=== PATIENT | female | born 1995 | race African-American/Black ===

== ENCOUNTER 2017-07-29 16:23 | Emergency (ER) | payer SELFPAY ==
[~2017-07-29] VITALS: Ht 175.3 cm; Wt 155.0 kg
[2017-07-29 16:28] VITALS: BP 182/100; PULSE 66; RESP 18; TEMP 98.9; O2SAT 98
--- NOTE | 2017-07-29 16:33 | PD ---
Physical Exam Date Seen by Provider: Jul 29, 2017 Time Seen by Provider: 16:31 Narrative 21 yo female here for abdominal pain and vomit. has vomited blood x 2. Last time two days ago. has had some chest pain as well but not now. Pain is 6/10. mainly in upper abdomen. no history of blood thinner use or this in the past. Vitals are stable in triage. Awaiting bed placement. Data Data Last Documented VS Vital Signs Date Time Temp Pulse Resp B/P (MAP) Pulse Ox O2 Delivery O2 Flow Rate FiO2 07/29/17 16:28 98.9 66 18 182/100 (127) 98 Room Air [facility] Medical Record Reviewed: Yes Supervised Visit with TARIQ: No Jae Sorensen Jul 29, 2017 16:32
[2017-07-29 19:35] VITALS: BP 130/65; PULSE 67; RESP 18; O2SAT 100
--- NOTE | 2017-07-29 19:39 | PD ---
HPI Chief Complaint: Abdominal Pain Time Seen by Provider: 19:25 Travel History International Travel<30 days: No Contact w/Intl Traveler<30days: No Traveled to known affect area: No History of Present Illness HPI This is a 21-year-old female with no significant past medical history presents for evaluation of abdominal pain. Symptoms started 1 week ago. She endorses intermittent epigastric/right upper quadrant pain which she describes a sharp, worse after meals. She is currently not experiencing any pain, she last x-rays pain earlier today when she ate a blueberry muffin. She reports that she was seen at 2 outside emergency rooms for evaluation of this pain in the past week and reportedly no testing was performed. She reports 2 episodes of vomiting last week when she actually gagged herself with a toothbrush but otherwise during review of systems she denies any additional nausea or vomiting. She denies any diarrhea or constipation, dysuria, flank pain. She does endorse some soreness in her breast region from exercise activities that she started doing in May. She reports that she started her menstrual period today. She denies any unusual vaginal discharge. She has no other complaints at this time. [facility] Past Medical History ?: Not LMP: 07/29/17 Social History Alcohol Use: No Tobacco Use: No Allergies-Medications (Allergen,Severity, Reaction): Coded Allergies: No Known Allergies (Unverified , 07/29/17) Review of Systems Except as stated in HPI: all other systems reviewed are Neg Physical Exam Narrative GENERAL: Well-developed well-nourished female in no acute distress, BMI 50.5 SKIN: Warm and dry. HEAD: Atraumatic. Normocephalic. EYES: Pupils equal and round. No scleral icterus. No injection or drainage. ENT: No nasal bleeding or discharge. Mucous membranes pink and moist. NECK: Trachea midline. No JVD. CARDIOVASCULAR: Regular rate and rhythm. No murmur appreciated. RESPIRATORY: No accessory muscle use. Clear to auscultation. Breath sounds equal bilaterally. GASTROINTESTINAL: Abdomen soft, very mild right upper quadrant tenderness without guarding. The remainder of the abdomen is nontender. MUSCULOSKELETAL: No obvious deformities. No clubbing. No cyanosis. No edema. NEUROLOGICAL: Awake and alert. No obvious cranial nerve deficits. Motor grossly within normal limits. Normal speech. PSYCHIATRIC: Appropriate mood and affect; insight and judgment normal. Data Data Last Documented VS Vital Signs Date Time Temp Pulse Resp B/P (MAP) Pulse Ox O2 Delivery O2 Flow Rate FiO2 07/29/17 19:35 67 18 130/65 (86) 100 Room Air 07/29/17 16:28 98.9 Orders Orders Complete Blood Count With Diff (07/29/17 16:35) Comprehensive Metabolic Panel (07/29/17 16:35) Lipase (07/29/17 16:35) Prothrombin Time / Inr (Pt) (07/29/17 16:35) Act Partial Throm Time (Ptt) (07/29/17 16:35) Urinalysis - C+S If Indicated (07/29/17 16:35) Electrocardiogram (07/29/17 16:35) Ed Urine Pregnancytest Poc (07/29/17 19:10) Us Abdomen Gallbladder (07/29/17 ) Ed Discharge Order (07/29/17 20:47) Labs Laboratory Tests Test 07/29/17 19:43 White Blood Count 6.0 TH/MM3 Red Blood Count 4.58 MIL/MM3 Hemoglobin 11.2 GM/DL Hematocrit 35.3 % Mean Corpuscular Volume 77.1 FL Mean Corpuscular Hemoglobin 24.4 PG Mean Corpuscular Hemoglobin Concent 31.6 % Red Cell Distribution Width 17.1 % Platelet Count 229 TH/MM3 Mean Platelet Volume 9.7 FL Neutrophils (%) (Auto) 48.8 % Lymphocytes (%) (Auto) 40.4 % Monocytes (%) (Auto) 9.8 % Eosinophils (%) (Auto) 0.6 % Basophils (%) (Auto) 0.4 % Neutrophils # (Auto) 2.9 TH/MM3 Lymphocytes # (Auto) 2.4 TH/MM3 Monocytes # (Auto) 0.6 TH/MM3 Eosinophils # (Auto) 0.0 TH/MM3 Basophils # (Auto) 0.0 TH/MM3 CBC Comment DIFF FINAL Differential Comment Prothrombin Time 11.9 SEC Prothromb Time International Ratio 1.1 RATIO Activated Partial Thromboplast Time 27.8 SEC Urine Color YELLOW Urine Turbidity HAZY Urine pH 6.0 Urine Specific [place] 1.034 Urine Protein TRACE mg/dL Urine Glucose (UA) NEG mg/dL Urine Ketones 80 mg/dL Urine Occult Blood MOD Urine Nitrite NEG Urine Bilirubin NEG Urine Urobilinogen 2.0 MG/DL Urine Leukocyte Esterase NEG Urine RBC 1 /hpf Urine WBC 3 /hpf Urine Squamous Epithelial Cells 6 /hpf Urine Mucus FEW /lpf Microscopic Urinalysis Comment CULT NOT INDICATED Blood Urea Nitrogen 9 MG/DL Creatinine 0.71 MG/DL Random Glucose 78 MG/DL Total Protein 7.9 GM/DL Albumin 3.7 GM/DL Calcium Level 9.5 MG/DL Alkaline Phosphatase 56 U/L Aspartate Amino Transf (AST/SGOT) 13 U/L Alanine Aminotransferase (ALT/SGPT) 15 U/L Total Bilirubin 0.2 MG/DL Sodium Level 138 MEQ/L Potassium Level 3.6 MEQ/L Chloride Level 105 MEQ/L Carbon Dioxide Level 24.2 MEQ/L Anion Gap 9 MEQ/L Estimat Glomerular Filtration Rate 126 ML/MIN Lipase 112 U/L MDM Medical Decision Making Medical Screen Exam Complete: Yes Emergency Medical Condition: Yes Medical Record Reviewed: Yes Interpretation(s) CBC reveals a hemoglobin of 11.2 otherwise unremarkable CMP Lipase Urinalysis 80 ketones moderate blood Urine negative Differential Diagnosis Biliary colic, cholecystitis, pancreatitis, gastritis, muscle strain Narrative Course This is a 21-year-old female who is been expressing intermittent epigastric and right upper quadrant abdominal pain that is exacerbated by meals. This started 1 week ago. Currently she is experiencing no pain. On examination she has mild right upper quadrant tenderness and therefore right upper quadrant ultrasound is been ordered. Basic lab work was ordered in triage. EKG was ordered in triage which reveals sinus rhythm with sinus arrhythmia. Her initial blood pressure in triage was 182/100, upon recheck in room the blood pressure is 130/65. Right upper quadrant ultrasound reveals CONCLUSION: 1. Gallstone in the gallbladder. 2. No biliary tract obstruction. The patient has been asymptomatic during her hospital stay. Certainly her symptoms could be suggestive of a biliary colic. The patient be given a copy of her ultrasound report and it is recommended that she follow up with a general surgeon on a routine basis to discuss elective cholecystectomy. Discussed signs and symptoms of [place] returning to the emergency room. She is stable for discharge. Diagnosis Primary Impression: Cholelithiasis Qualified Codes: K80.20 - Calculus of gallbladder without cholecystitis without obstruction Referrals: Puma Truong MD General Surgeon Additional Instructions: Please print copy of the patient's ultrasound results and provide the patient with it. Low-fat diet. Follow-up with a general surgeon such as Dr. Truong on a routine basis. If you have severe intractable right upper quadrant abdominal pain, intractable vomiting, fevers, return to the emergency room. Med/Other Pt SpecificInfo: No Change to Meds Disposition: 01 DISCHARGE HOME Condition: Stable Vinh Rose Jul 29, 2017 19:39
[2017-07-29 20:06] LABS: AUTOMATED NEUTROPHIL # 2.9 TH/MM3 (1.8-7.7); BASOPHIL % 0.4 % (0.0-2.0); EOSINOPHIL % 0.6 % (0.0-4.0); HEMATOCRIT 35.3 % (35.0-46.0); HEMO FLAGS DIFF FINAL; LYMPH % 40.4 % (9.0-44.0); LYMPHOCYTE # 2.4 TH/MM3 (1.0-4.8); MEAN CELL VOLUME 77.1 FL (80.0-100.0); MEAN CORPUSCULAR HEMOGLOBIN 24.4 PG (27.0-34.0); MEAN CORPUSCULAR HGB CONC 31.6 % (32.0-36.0); MONO % 9.8 % (0.0-8.0); NEUT % 48.8 % (16.0-70.0); PLATELET COUNT 229 TH/MM3 (150-450); RED BLOOD COUNT 4.58 MIL/MM3 (4.00-5.30); RED CELL DISTRIBUTION WIDTH 17.1 % (11.6-17.2)
[2017-07-29 20:10] LABS: BLOOD, URINE MOD (NEG); COMMENT (UR) CULT NOT INDICATED; CULTURE IF INDICATED CULT NOT INDICATED; GLUCOSE,URINE NEG (NEG); KETONE, URINE 80 mg/dL (NEG); MUCUS URINE FEW /lpf (OCC); NITRITE,URINE NEG (NEG); SQUAMOUS EPITHELIAL CELL URINE 6 /hpf (0-5); URINE COLOR YELLOW (YELLW/STRAW)
[2017-07-29 20:23] LABS: ALT (GPT) 15 U/L (10-53); ANION GAP 9 MEQ/L (5-15); AST (GOT) 13 U/L (15-37); BICARBONATE 24.2 MEQ/L (21.0-32.0); BLOOD UREA NITROGEN 9 MG/DL (7-18); CHLORIDE 105 MEQ/L (98-107); GLOMERULAR FILTRATION RATE 126 ML/MIN (>89); POTASSIUM 3.6 MEQ/L (3.5-5.1); SODIUM (NA) 138 MEQ/L (136-145)
[2017-07-29 20:26] LABS: ALKALINE PHOSPHATASE 56 U/L (45-117); APTT (PATIENT) 27.8 SEC (24.3-30.1); INTERNATIONAL NORMALIZED RATIO 1.1 RATIO; PROTHROMBIN TIME - PATIENT 11.9 SEC (9.8-11.6); TOTAL BILIRUBIN ADULT 0.2 MG/DL (0.2-1.0)
--- NOTE | 2017-07-29 20:33 | RADRPT ---
EXAM DATE/TIME: 07/29/2017 20:08 [facility] COMPARISON: No previous studies available for comparison. INDICATIONS : Right upper quadrant. MEDICAL HISTORY : Right upper quadrant pain. SURGICAL HISTORY : None. ENCOUNTER: Initial ACUITY: 1 week PAIN SCORE: 6/10 LOCATION: Right upper quadrant MEASUREMENTS: LIVER: 14.4 cm length COMMON DUCT: 5 mm RIGHT KIDNEY: 9.7 x 4.8 x 5.8 cm FINDINGS: LIVER: Normal echotexture without focal lesion or ductal dilatation. The portal system is patent. No ascites . COMMON DUCT: No intraluminal mass or stone visualized. GALLBLADDER: There appears to be a stone in the gallbladder measuring 1.1 cm. The gallbladder bear not thickened. There is no fluid around the gallbladder. PANCREAS: The visualized portions are within normal limits. RIGHT KIDNEY: Limited visualization but no definite hydronephrosis. CONCLUSION: 1. Gallstone in the gallbladder. 2. No biliary tract obstruction. Marito Arias MD on July 29, 2017 at 20:30 Board Certified Radiologist. This report was verified electronically.
--- NOTE | 2017-07-30 23:49 | EKG ---
Date Performed: 07/29/2017 Time Performed: 16:44:04 PTAGE: 21 years EKG: Sinus rhythm WITH MARKED SINUS ARRHYTHMIA MINIMAL VOLTAGE CRITERIA FOR LVH, CONSIDER NORMAL VARIANT BORDERLINE EC G NO PREVIOUS TRACING DOCTOR: August Dow Interpretating Date/Time 07/30/2017 23:49:24
== END 2017-07-29 21:02 | disposition home or self-care (01) ==
LOC: NEPE 16:23
DX: K80.20 Calculus of gallbladder without cholecystitis without obstruction (principal); R94.31 Abnormal electrocardiogram [ECG] [EKG]
CPT/HCPCS: 76705; 80053; 81001; 83690; 84703; 85025; 85610; 85730; 93005; 99285

== ENCOUNTER 2017-08-13 14:04 | Emergency (ER) | payer SELFPAY ==
[~2017-08-13] VITALS: Ht 175.3 cm; Wt 158.0 kg
[2017-08-13 14:05] VITALS: BP 142/90; PULSE 72; RESP 16; TEMP 98.3; O2SAT 100
--- NOTE | 2017-08-13 14:34 | PD ---
HPI . Abdominal pain Chief Complaint: Abdominal Pain Time Seen by Provider: 14:23 Travel History International Travel<30 days: No Contact w/Intl Traveler<30days: No Traveled to known affect area: No History of Present Illness HPI Patient presents stating that she had an episode of left upper abdominal pain earlier today. She describes the pain as a sharp pain that was exacerbated by respirations. She rated the pain 3/10 but the pain has now completely subsided so that it is now a 0/10. She reports an associated episode of emesis. She is curious as to how long this visit is going to take because she is ready to go to lunch. [facility] Social History Alcohol Use: No Tobacco Use: No Allergies-Medications (Allergen,Severity, Reaction): Coded Allergies: No Known Allergies (Unverified , 07/29/17) Review of Systems Except as stated in HPI: all other systems reviewed are Neg Gastrointestinal: Positive: Nausea, Vomiting, Abdominal Pain, No: Diarrhea Genitourinary: No: Urgency, Frequency, Dysuria Physical Exam Narrative GENERAL: She is lying comfortably on the stretcher. SKIN: warm/dry. HEAD: Normocephalic. Atraumatic. EYES: Pupils equal and round. No scleral icterus. No injection or drainage. ENT: No nasal bleeding or discharge. Mucous membranes pink and moist. NECK: Trachea midline. Full range of motion without pain.. CARDIOVASCULAR: Regular rate and rhythm. RESPIRATORY: No accessory muscle use. Clear to auscultation. Breath sounds equal bilaterally. GASTROINTESTINAL: Abdomen soft. Nontender. Bowel sounds present. Nondistended. MUSCULOSKELETAL: No obvious deformities. NEUROLOGICAL: Awake and alert. No obvious cranial nerve deficits. Motor grossly within normal limits. Normal speech. PSYCHIATRIC: Appropriate mood and affect; insight and judgment normal. Data Data Last Documented VS Vital Signs Date Time Temp Pulse Resp B/P (MAP) Pulse Ox O2 Delivery O2 Flow Rate FiO2 08/13/17 14:05 98.3 72 16 142/90 (107) 100 Room Air Orders Orders Ed Discharge Order (08/13/17 14:31) [facility] Medical Decision Making Medical Screen Exam Complete: Yes Emergency Medical Condition: Yes Differential Diagnosis Differential diagnosis of abdominal pain includes but is not limited to gastritis, pancreatitis, hepatitis, gastroenteritis, gallbladder disease, constipation, urinary retention, UTI, peptic ulcer disease, diverticulitis or appendicitis Narrative Course This patient presents with left upper quadrant abdominal pain associated with single episode of emesis. Her symptoms have all completely subsided. He is hungry and ready to eat. The history, exam, diagnostic testing, and current condition do not suggest any significant pathology to warrant further testing, continued ED treatment, admission, or surgical evaluation at this point. No EMC was found. The patient 's condition is stable and appropriate for discharge. Diagnosis Primary Impression: Abdominal pain Qualified Codes: R10.12 - Left upper quadrant pain Patient Instructions: General Instructions Departure Forms: Tests/Procedures Disposition: DISCHARGE HOME Condition: Stable Hyacinth Martin MD Aug 13, 2017 14:34
== END 2017-08-13 14:41 | disposition home or self-care (01) ==
LOC: NEPD 14:04
DX: R10.12 Left upper quadrant pain (principal); R11.2 Nausea with vomiting, unspecified
CPT/HCPCS: 99281

== ENCOUNTER 2017-11-05 13:16 | Emergency (ER) | payer SELFPAY ==
[~2017-11-05] VITALS: Ht 175.3 cm; Wt 152.3 kg
[2017-11-05 13:18] VITALS: BP 131/79; PULSE 118; RESP 14; TEMP 98.2; O2SAT 98
[2017-11-05 14:01] LABS: BILIRUBIN, URINE NEG (NEG); BLOOD, URINE TRACE (NEG); GLUCOSE,URINE NEG (NEG); KETONE, URINE NEG (NEG); MUCUS URINE FEW /lpf (OCC); NITRITE,URINE NEG (NEG); PH, URINE 5.5 (5.0-8.5); SQUAMOUS EPITHELIAL CELL URINE 1 /hpf (0-5); URINE COLOR YELLOW (YELLW/STRAW); URINE LEUKOCYTE ESTERASE NEG (NEG)
--- NOTE | 2017-11-05 14:51 | PD ---
HPI Chief Complaint: Back/ Neck Pain or Injury Time Seen by Provider: 14:49 Travel History International Travel<30 days: No Contact w/Intl Traveler<30days: No Traveled to known affect area: No History of Present Illness HPI 22-year-old female presents the emergency department with complaints of urinary frequency and generalized weakness. Patient states that she gets recurrent sinusitis. She is currently on cephalexin, and saline nasal spray for that. She states she get the prescription back in July but never took it until several days ago. When low-grade low back discomfort, as well as fatigue which has been worse in the last 24-48 hours. Patient does report fairly heavy periods, but she's never been diagnosed with anemia. She denies fever or chills or other constitutional symptoms. She has no known drug allergies. Urinalysis and urine ordered and triage are both negative. PFSH Past Medical History ?: Not LMP: 10/15/2017 Social History Alcohol Use: No Tobacco Use: No Substance Use: No Allergies-Medications (Allergen,Severity, Reaction): Coded Allergies: No Known Allergies (Unverified Adverse Reaction, Unknown, 11/05/17) Reported Meds & Prescriptions Reported Meds & Active Scripts Active No Active Prescriptions or Reported Medications Review of Systems Except as stated in HPI: all other systems reviewed are Neg General / Constitutional: No: Fever, Chills Eyes: No: Visual changes HENT: Positive: Rhinitis, Rhinorrhea, Congestion, No: Headaches, Vertigo, Lightheadedness, Sore Throat, Nosebleed, Neck Stiffness, Neck Pain, Dental Difficulties, Earache Cardiovascular: No: Chest Pain or Discomfort Respiratory: No: Cough, Shortness of Breath, Wheezing Gastrointestinal: No: Nausea, Vomiting, Abdominal Pain Genitourinary: Positive: Frequency, No: Urgency, Dysuria Musculoskeletal: No: Pain Skin: No Rash Neurologic: No: Weakness Psychiatric: No: Depression Endocrine: No: Polydipsia Hematologic/Lymphatic: No: Easy Bruising Physical Exam Narrative GENERAL: Patient appears in no acute distress. SKIN: Warm and dry.. Normal turgor. HEAD: Atraumatic. Normocephalic. EYES: Pupils equal and round. No scleral icterus. No injection or drainage. Moderate bilateral conjunctival pallor suggestive of anemia. ENT: No nasal bleeding or discharge. Mucous membranes pink and moist. No significant sinus tenderness at this time. Posterior pharynx is clear. Airway is patent. NECK: Trachea midline. Supple and nontender. CARDIOVASCULAR: Regular rate and rhythm. RESPIRATORY: No accessory muscle use. Clear to auscultation. Breath sounds equal bilaterally. GASTROINTESTINAL: Abdomen soft, non-tender, nondistended. Hepatic and splenic margins not palpable. MUSCULOSKELETAL: Extremities without clubbing, cyanosis, or edema. No obvious deformities. No significant findings on musculoskeletal exam. NEUROLOGICAL: Awake and alert. No obvious cranial nerve deficits. Motor grossly within normal limits. Five out of 5 muscle strength in the arms and legs. Normal speech. PSYCHIATRIC: Appropriate mood and affect; insight and judgment normal. Data Data Last Documented VS Vital Signs Date Time Temp Pulse Resp B/P (MAP) Pulse Ox O2 Delivery O2 Flow Rate FiO2 11/05/17 13:18 98.2 118 14 131/79 (96) 98 Orders Orders Urinalysis - C+S If Indicated (11/05/17 13:21) Ed Urine Pregnancytest Poc (11/05/17 13:28) Complete Blood Count With Diff (11/05/17 14:58) Comprehensive Metabolic Panel (11/05/17 14:58) Labs Laboratory Tests Test 11/05/17 13:30 11/05/17 15:15 Urine Color YELLOW Urine Turbidity CLEAR Urine pH 5.5 Urine Specific [place] 1.016 Urine Protein TRACE mg/dL Urine Glucose (UA) NEG mg/dL Urine Ketones NEG mg/dL Urine Occult Blood TRACE Urine Nitrite NEG Urine Bilirubin NEG Urine Urobilinogen LESS THAN 2.0 MG/DL Urine Leukocyte Esterase NEG Urine RBC 6 /hpf Urine WBC 1 /hpf Urine Squamous Epithelial Cells 1 /hpf Urine Mucus FEW /lpf Microscopic Urinalysis Comment CULT NOT INDICATED White Blood Count 7.6 TH/MM3 Red Blood Count 4.69 MIL/MM3 Hemoglobin 11.7 GM/DL Hematocrit 35.8 % Mean Corpuscular Volume 76.4 FL Mean Corpuscular Hemoglobin 25.0 PG Mean Corpuscular Hemoglobin Concent 32.7 % Red Cell Distribution Width 17.5 % Platelet Count 247 TH/MM3 Mean Platelet Volume 9.9 FL Neutrophils (%) (Auto) 62.1 % Lymphocytes (%) (Auto) 25.4 % Monocytes (%) (Auto) 11.5 % Eosinophils (%) (Auto) 0.6 % Basophils (%) (Auto) 0.4 % Neutrophils # (Auto) 4.7 TH/MM3 Lymphocytes # (Auto) 1.9 TH/MM3 Monocytes # (Auto) 0.9 TH/MM3 Eosinophils # (Auto) 0.0 TH/MM3 Basophils # (Auto) 0.0 TH/MM3 CBC Comment DIFF FINAL Differential Comment Blood Urea Nitrogen 10 MG/DL Creatinine 0.82 MG/DL Random Glucose 73 MG/DL Total Protein 8.7 GM/DL Albumin 3.8 GM/DL Calcium Level 9.1 MG/DL Alkaline Phosphatase 64 U/L Aspartate Amino Transf (AST/SGOT) 22 U/L Alanine Aminotransferase (ALT/SGPT) 18 U/L Total Bilirubin 0.3 MG/DL Sodium Level 138 MEQ/L Potassium Level 4.4 MEQ/L Chloride Level 105 MEQ/L Carbon Dioxide Level 24.7 MEQ/L Anion Gap 8 MEQ/L Estimat Glomerular Filtration Rate 105 ML/MIN MDM Medical Decision Making Medical Screen Exam Complete: Yes Emergency Medical Condition: Yes Medical Record Reviewed: Yes Differential Diagnosis UTI. . Fatigue. Anemia. Narrative Course Urinalysis and urine in triage are both negative. CBC and CMP are ordered to rule out significant anemia. CBC is unremarkable. CMP unremarkable. Patient follow-up with local primary care provider, and was referred to [facility]. Diagnosis Primary Impression: Fatigue Qualified Codes: R53.83 - Other fatigue Referrals: [facility] call for appointment Patient Instructions: General Instructions Additional Instructions: Urinalysis and urine in triage are both negative. CBC and CMP are ordered to rule out significant anemia. CBC is unremarkable. CMP unremarkable. Patient follow-up with local primary care provider, and was referred to [facility]. Med/Other Pt SpecificInfo: No Change to Meds Scripts No Active Prescriptions or Reported Meds Disposition: 01 DISCHARGE HOME Condition: Stable Puma Burroughs Nov 05, 2017 14:51
[2017-11-05 16:24] LABS: AUTOMATED NEUTROPHIL # 4.7 TH/MM3 (1.8-7.7); BASOPHIL % 0.4 % (0.0-2.0); EOSINOPHIL % 0.6 % (0.0-4.0); HEMATOCRIT 35.8 % (35.0-46.0); HEMOGLOBIN 11.7 GM/DL (11.6-15.3); LYMPH % 25.4 % (9.0-44.0); LYMPHOCYTE # 1.9 TH/MM3 (1.0-4.8); MEAN CELL VOLUME 76.4 FL (80.0-100.0); MEAN CORPUSCULAR HGB CONC 32.7 % (32.0-36.0); MEAN PLATELET VOLUME 9.9 FL (7.0-11.0); MONO % 11.5 % (0.0-8.0); MONOCYTE # 0.9 TH/MM3 (0-0.9); NEUT % 62.1 % (16.0-70.0); PLATELET COUNT 247 TH/MM3 (150-450); RED BLOOD COUNT 4.69 MIL/MM3 (4.00-5.30); RED CELL DISTRIBUTION WIDTH 17.5 % (11.6-17.2); WHITE BLOOD COUNT 7.6 TH/MM3 (4.0-11.0)
[2017-11-05 16:40] LABS: ALT (GPT) 18 U/L (10-53)
[2017-11-05 16:41] LABS: ALBUMIN 3.8 GM/DL (3.4-5.0); AST (GOT) 22 U/L (15-37); BICARBONATE 24.7 MEQ/L (21.0-32.0); BLOOD UREA NITROGEN 10 MG/DL (7-18); CALCIUM 9.1 MG/DL (8.5-10.1); CHLORIDE 105 MEQ/L (98-107); CREATININE 0.82 MG/DL (0.50-1.00); GLOMERULAR FILTRATION RATE 105 ML/MIN (>89); GLUCOSE,RANDOM 73 MG/DL (74-106); SODIUM (NA) 138 MEQ/L (136-145)
[2017-11-05 16:42] LABS: ALKALINE PHOSPHATASE 64 U/L (45-117); TOTAL BILIRUBIN ADULT 0.3 MG/DL (0.2-1.0); TOTAL PROTEIN 8.7 GM/DL (6.4-8.2)
[2017-11-05 16:50] VITALS: BP 129/73; PULSE 94; RESP 16; O2SAT 98
== END 2017-11-05 17:14 | disposition home or self-care (01) ==
LOC: NEPD 13:16
DX: R53.83 Other fatigue (principal); J34.89 Other specified disorders of nose and nasal sinuses; R09.81 Nasal congestion
CPT/HCPCS: 80053; 81001; 84703; 85025; 99283

== ENCOUNTER 2017-12-04 18:02 | Emergency (ER) | payer MEDICAID ==
[~2017-12-04] VITALS: Ht 175.3 cm; Wt 155.0 kg
[2017-12-04 18:05] VITALS: BP 150/105; PULSE 89; RESP 16; TEMP 98.2; O2SAT 99
[2017-12-04 19:48] LABS: BACTERIA, URINE RARE /hpf; BILIRUBIN, URINE NEG (NEG); BLOOD, URINE LARGE (NEG); GLUCOSE,URINE NEG (NEG); KETONE, URINE NEG (NEG); MUCUS URINE FEW /lpf (OCC); NITRITE,URINE NEG (NEG); PH, URINE 5.5 (5.0-8.5); SQUAMOUS EPITHELIAL CELL URINE 5 /hpf (0-5); URINE COLOR YELLOW (YELLW/STRAW); URINE LEUKOCYTE ESTERASE SMALL (NEG)
[2017-12-04 20:20] VITALS: BP 140/70; PULSE 68; RESP 15; O2SAT 100
--- NOTE | 2017-12-04 20:31 | PD ---
HPI Chief Complaint: Flank/Kidney Pain Time Seen by Provider: 20:07 Travel History International Travel<30 days: No Contact w/Intl Traveler<30days: No Traveled to known affect area: No History of Present Illness HPI pt is 22 year old female complaining of right parathoracic area back pain and right UQ pain off and on for weeks , patient reports she was in the hospital in August in our ER had an ultrasound she said it showed gallstones which she never followed up with surgery. She denies nausea vomiting diarrhea she has had no surgeries she denies risk pain is parathoracic right sided as well as right upper quadrant. She is currently having her period for the red blood cells and responded her urine are not an indication of any kidney involvement PFSH Past Medical History Medical History: Denies Significant Hx ?: Not LMP: 12/04/17 Past Surgical History Surgical History: No Previous Surgery Social History Alcohol Use: No Tobacco Use: No Substance Use: No Allergies-Medications (Allergen,Severity, Reaction): Coded Allergies: No Known Allergies (Unverified Adverse Reaction, Unknown, 12/04/17) Reported Meds & Prescriptions Reported Meds & Active Scripts Active Bactrim DS (Sulfamethoxazole-Trimethoprim) 800-160 Mg Tab 1 Tab PO BID Review of Systems Except as stated in HPI: all other systems reviewed are Neg Gastrointestinal: Positive: Abdominal Pain (right sided mid back pain intermittent dull deep pain localized internal . ) Physical Exam Narrative GENERAL: Patient is nontoxic appearing awake alert SKIN: Warm and dry. HEAD: Atraumatic. Normocephalic. EYES: Pupils equal and round. No scleral icterus. No injection or drainage. ENT: No nasal bleeding or discharge. Mucous membranes pink and moist. NECK: Trachea midline. No JVD. CARDIOVASCULAR: Regular rate and rhythm. RESPIRATORY: No accessory muscle use. Clear to auscultation. Breath sounds equal bilaterally. GASTROINTESTINAL: Abdomen mild tenderness right upper quadrant , patient is obese. Hepatic and splenic margins not palpable. MUSCULOSKELETAL: Extremities without clubbing, cyanosis, or edema. No obvious deformities. NEUROLOGICAL: Awake and alert. No obvious cranial nerve deficits. Motor grossly within normal limits. Five out of 5 muscle strength in the arms and legs. Normal speech. PSYCHIATRIC: Appropriate mood and affect; insight and judgment normal. Data Data Last Documented VS Vital Signs Date Time Temp Pulse Resp B/P (MAP) Pulse Ox O2 Delivery O2 Flow Rate FiO2 2/15/18 23:12 12/04/17 20:20 68 15 100 Room Air 12/04/17 18:05 98.2 Orders Orders Urinalysis - C+S If Indicated (12/04/17 18:50) Ed Urine Pregnancytest Poc (12/04/17 18:50) Urine Culture (12/04/17 18:50) Us Abdomen Gallbladder (12/04/17 ) Sulfamet-Trimeth Ds 800-160 Mg (Bactrim (12/04/17 23:15) Ed Discharge Order (12/04/17 23:07) Labs Laboratory Tests Test 12/04/17 18:50 Urine Color YELLOW Urine Turbidity HAZY Urine pH 5.5 Urine Specific [place] 1.022 Urine Protein 30 mg/dL Urine Glucose (UA) NEG mg/dL Urine Ketones NEG mg/dL Urine Occult Blood LARGE Urine Nitrite NEG Urine Bilirubin NEG Urine Urobilinogen LESS THAN 2.0 MG/DL Urine Leukocyte Esterase SMALL Urine RBC 96 /hpf Urine WBC 9 /hpf Urine Squamous Epithelial Cells 5 /hpf Urine Bacteria RARE /hpf Urine Mucus FEW /lpf Microscopic Urinalysis Comment CULTURE INDICATED MDM Medical Decision Making Medical Screen Exam Complete: Yes Emergency Medical Condition: Yes Differential Diagnosis pt has RUQ pain GB vs gastritis vs pancreatitis, vs other Narrative Course pt has normal labs and US looks to have possibly 1 Gallstone without signs of Cholecystitis. Diagnosis Primary Impression: Abdominal pain Qualified Codes: R10.11 - Right upper quadrant pain Patient Instructions: General Instructions, Urinary Tract Infection in Women ( ED) Scripts Sulfamethoxazole-Trimethoprim (Bactrim DS) 800-160 Mg Tab 1 TAB PO BID for Infection, #14 TAB 0 Refills Prov: Hebert Palencia MD 12/04/17 Disposition: 01 DISCHARGE HOME Condition: Hebert Ingram MD Dec 04, 2017 20:31
--- NOTE | 2017-12-04 21:22 | RADRPT ---
EXAM DATE/TIME: 12/04/2017 20:42 [facility] COMPARISON: No previous studies available for comparison. INDICATIONS : Right upper quadrant pain. MEDICAL HISTORY : Cholelithiasis. SURGICAL HISTORY : None. ENCOUNTER: Subsequent ACUITY: 1 week PAIN SCORE: 2/10 LOCATION: Right upper quadrant MEASUREMENTS: LIVER: 14.3 cm length COMMON DUCT: 5 mm RIGHT KIDNEY: 11.3 x 7.1 x 6.6 cm FINDINGS: LIVER: Normal echotexture without focal lesion or ductal dilatation. COMMON DUCT: No intraluminal mass or stone visualized. GALLBLADDER: Contains no stones, demonstrates no wall thickening or pericholecystic fluid. PANCREAS: The visualized portions are within normal limits. RIGHT KIDNEY: No evidence of hydronephrosis, stone, or mass. CONCLUSION: 1. Examination within normal limits. Dante Canseco MD on December 04, 2017 at 21:17 Board Certified Radiologist. This report was verified electronically.
[2017-12-04] MEDS ORDERED: BACT800T5 PO (23:07)
[2017-12-04] MEDS ORDERED: SULFAMETHOXAZOLE-TRIMETHOPRIM DS 800-160 MG TAB PO ONE (23:15)
== END 2017-12-04 23:29 | disposition home or self-care (01) ==
LOC: NEPC 18:02
DX: R10.11 Right upper quadrant pain (principal)
CPT/HCPCS: 76705; 81001; 84703; 87086

== ENCOUNTER 2017-12-15 12:18 | Emergency (ER) | payer MEDICAID ==
[~2017-12-15 12:18] MED LIST: BACT800T5 PO
[2017-12-15 12:49] VITALS: BP 122/66; PULSE 60; RESP 12; TEMP 98.5; O2SAT 100
[2017-12-15 14:15] LABS: BILIRUBIN, URINE NEG (NEG); BLOOD, URINE NEG (NEG); GLUCOSE,URINE NEG (NEG); KETONE, URINE NEG (NEG); MUCUS URINE FEW /lpf (OCC); NITRITE,URINE NEG (NEG); PH, URINE 5.5 (5.0-8.5); SQUAMOUS EPITHELIAL CELL URINE 9 /hpf (0-5); URINE COLOR YELLOW (YELLW/STRAW); URINE LEUKOCYTE ESTERASE NEG (NEG)
--- NOTE | 2017-12-15 14:15 | PD ---
HPI Chief Complaint: Medical Clearance Time Seen by Provider: 13:42 Travel History International Travel<30 days: No Contact w/Intl Traveler<30days: No Traveled to known affect area: No History of Present Illness HPI 22 YO F presents to the ED for evaluation of "worms" in her stool and nasal secretions. She states that she traveled to [place] with her choral group few weeks ago. She states that after eating salad from the salad bar at school she had a loose stool and thought she was able to see something that was wormlike. She states that she blew her nose this morning and again thought she saw wormlike structures in her nasal secretions. She complains of vague, generalized abdominal pain. She states it is worsened by eating. She denies nausea, vomiting, rectal pruritis, fevers, or chills. She states that multiple other people on the trip complained of abdominal discomfort and loose stools. She states that she was treated for UTI a few weeks ago but still continues to have urinary frequency. S denies dysuria, hematuria. She denies back pain. She endorses thin vaginal discharge. She endorses unprotected sex in August. She denies risk of . PFSH Past Medical History ?: Not LMP: 12/08/2017 Social History Alcohol Use: No Tobacco Use: No Substance Use: No Allergies-Medications (Allergen,Severity, Reaction): Coded Allergies: No Known Allergies (Unverified Adverse Reaction, Unknown, 12/04/17) Reported Meds & Prescriptions Reported Meds & Active Scripts Active Emverm (Mebendazole) 100 Mg Chew 100 Mg PO BID Bactrim DS (Sulfamethoxazole-Trimethoprim) 800-160 Mg Tab 1 Tab PO BID Review of Systems Except as stated in HPI: all other systems reviewed are Neg Physical Exam Narrative GENERAL: Well-nourished, well-developed obese black female in no acute distress. SKIN: Focused skin assessment warm/dry. HEAD: Normocephalic. EYES: No scleral icterus. No injection or drainage. NECK: Supple, trachea midline. No JVD or lymphadenopathy. CARDIOVASCULAR: Regular rate and rhythm without murmurs, gallops, or rubs. RESPIRATORY: Breath sounds clear and equal bilaterally. No accessory muscle use. GASTROINTESTINAL: Abdomen soft, non-tender, nondistended. Active bowel sounds. RECTAL EXAM: No masses or tenderness, stool is brown. Guaiac negative MUSCULOSKELETAL: No cyanosis, or edema. Moves extremities spontaneously. Walks with a normal gait. BACK: Nontender without obvious deformity. No CVA tenderness. Data Data Last Documented VS Vital Signs Date Time Temp Pulse Resp B/P (MAP) Pulse Ox O2 Delivery O2 Flow Rate FiO2 12/15/17 16:16 62 18 118/64 (82) 98 12/15/17 12:49 98.5 Orders Orders Complete Blood Count With Diff (12/15/17 12:52) Comprehensive Metabolic Panel (12/15/17 12:52) Lipase (12/15/17 12:52) Urinalysis - C+S If Indicated (12/15/17 12:52) Ed Urine Pregnancytest Poc (12/15/17 14:15) Ed Discharge Order (12/15/17 15:48) Labs Laboratory Tests Test 12/15/17 13:15 12/15/17 14:35 Urine Color YELLOW Urine Turbidity HAZY Urine pH 5.5 Urine Specific [place] 1.022 Urine Protein NEG mg/dL Urine Glucose (UA) NEG mg/dL Urine Ketones NEG mg/dL Urine Occult Blood NEG Urine Nitrite NEG Urine Bilirubin NEG Urine Urobilinogen LESS THAN 2.0 MG/DL Urine Leukocyte Esterase NEG Urine RBC 1 /hpf Urine WBC 4 /hpf Urine Squamous Epithelial Cells 9 /hpf Urine Mucus FEW /lpf Microscopic Urinalysis Comment CULT NOT INDICATED White Blood Count 4.5 TH/MM3 Red Blood Count 4.59 MIL/MM3 Hemoglobin 11.0 GM/DL Hematocrit 34.2 % Mean Corpuscular Volume 74.6 FL Mean Corpuscular Hemoglobin 24.0 PG Mean Corpuscular Hemoglobin Concent 32.1 % Red Cell Distribution Width 17.4 % Platelet Count 238 TH/MM3 Mean Platelet Volume 9.5 FL Neutrophils (%) (Auto) 41.1 % Lymphocytes (%) (Auto) 47.6 % Monocytes (%) (Auto) 9.7 % Eosinophils (%) (Auto) 1.2 % Basophils (%) (Auto) 0.4 % Neutrophils # (Auto) 1.9 TH/MM3 Lymphocytes # (Auto) 2.2 TH/MM3 Monocytes # (Auto) 0.4 TH/MM3 Eosinophils # (Auto) 0.1 TH/MM3 Basophils # (Auto) 0.0 TH/MM3 CBC Comment DIFF FINAL Differential Comment Blood Urea Nitrogen 10 MG/DL Creatinine 0.70 MG/DL Random Glucose 76 MG/DL Total Protein 8.3 GM/DL Albumin 3.9 GM/DL Calcium Level 9.2 MG/DL Alkaline Phosphatase 58 U/L Aspartate Amino Transf (AST/SGOT) 20 U/L Alanine Aminotransferase (ALT/SGPT) 16 U/L Total Bilirubin 0.2 MG/DL Sodium Level 136 MEQ/L Potassium Level 4.0 MEQ/L Chloride Level 104 MEQ/L Carbon Dioxide Level 25.4 MEQ/L Anion Gap 7 MEQ/L Estimat Glomerular Filtration Rate 127 ML/MIN Lipase 103 U/L [facility] Medical Decision Making Medical Screen Exam Complete: Yes Emergency Medical Condition: Yes Differential Diagnosis abdominal pain versus UTI versus parasite infection versus STI versus other Narrative Course 22-year-old female presents to the ED for evaluation of vague abdominal pain accompanied by loose stools. She shows pictures of what she thinks are worms in her stool and nasal secretions. She states that she went to [facility] with her call group a few weeks ago. They stayed at [facility] while they were there. She states that several other members of the group complaint of GI complaints but no other members alleged parasitic infection. Vitals reviewed. Physical exam is very reassuring. I offered the patient a pelvic exam. She declines at this time. She states that last pelvic exam was "over the summer." UPT: negative UA: no culture indicated 12/15/17 14:35 Total Protein 8.3 H, Albumin 3.9, Calcium Level 9.2, Alkaline Phosphatase 58, Aspartate Amino Transf (AST/SGOT) 20, Alanine Aminotransferase (ALT/SGPT) 16, Total Bilirubin 0.2 I discussed the results of the workup with the patient. I explained that the likelihood of having a parasitic infection in both the respiratory and GI tracts is unlikely. However, she was prescribed a course of mebendazole. She is instructed to follow-up with her primary care provider for gynecologic evaluation, return for worsening symptoms. She is stable and discharged home. Diagnosis Primary Impression: Abdominal pain Qualified Codes: R10.9 - Unspecified abdominal pain Referrals: [facility] Patient Instructions: Abdominal Pain (ED), General Instructions Additional Instructions: Rest, hydrate. Take medication as prescribed until every pill is gone. Follow up with the [facility] for further evaluation. Return to the ED for any urgent/ emergent medical condition. Med/Other Pt SpecificInfo: Prescription(s) given Scripts Mebendazole (Emverm) 100 Mg Chew 100 MG PO BID for Worms, #6 TAB 0 Refills Prov: Douglas Zheng MD 12/15/17 Disposition: 01 DISCHARGE HOME Condition: Stable Michaela Chan Dec 15, 2017 14:15
[2017-12-15 15:37] LABS: AUTOMATED NEUTROPHIL # 1.9 TH/MM3 (1.8-7.7); BASOPHIL % 0.4 % (0.0-2.0); EOSINOPHIL # 0.1 TH/MM3 (0-0.4); EOSINOPHIL % 1.2 % (0.0-4.0); HEMATOCRIT 34.2 % (35.0-46.0); LYMPH % 47.6 % (9.0-44.0); LYMPHOCYTE # 2.2 TH/MM3 (1.0-4.8); MEAN CELL VOLUME 74.6 FL (80.0-100.0); MEAN CORPUSCULAR HGB CONC 32.1 % (32.0-36.0); MEAN PLATELET VOLUME 9.5 FL (7.0-11.0); MONO % 9.7 % (0.0-8.0); MONOCYTE # 0.4 TH/MM3 (0-0.9); NEUT % 41.1 % (16.0-70.0); PLATELET COUNT 238 TH/MM3 (150-450); RED BLOOD COUNT 4.59 MIL/MM3 (4.00-5.30); RED CELL DISTRIBUTION WIDTH 17.4 % (11.6-17.2); WHITE BLOOD COUNT 4.5 TH/MM3 (4.0-11.0)
[2017-12-15] MEDS ORDERED: MEBE1CHW14 PO (15:39)
[2017-12-15 15:45] LABS: ALBUMIN 3.9 GM/DL (3.4-5.0); ALT (GPT) 16 U/L (10-53); AST (GOT) 20 U/L (15-37); BICARBONATE 25.4 MEQ/L (21.0-32.0); BLOOD UREA NITROGEN 10 MG/DL (7-18); CALCIUM 9.2 MG/DL (8.5-10.1); CHLORIDE 104 MEQ/L (98-107); GLOMERULAR FILTRATION RATE 127 ML/MIN (>89); GLUCOSE,RANDOM 76 MG/DL (74-106); SODIUM (NA) 136 MEQ/L (136-145)
[2017-12-15 15:46] LABS: ALKALINE PHOSPHATASE 58 U/L (45-117); TOTAL BILIRUBIN ADULT 0.2 MG/DL (0.2-1.0); TOTAL PROTEIN 8.3 GM/DL (6.4-8.2)
[2017-12-15 16:16] VITALS: BP 118/64
== END 2017-12-15 16:18 | disposition home or self-care (01) ==
LOC: NEPC 12:18
DX: R10.84 Generalized abdominal pain (principal)
CPT/HCPCS: 80053; 81001; 83690; 84703; 85025; 99283

== ENCOUNTER 2018-01-07 00:06 | Emergency (ER) | payer MEDICAID ==
[~2018-01-07] VITALS: Ht 175.3 cm; Wt 150.0 kg
[~2018-01-07 00:06] MED LIST changes: +MEBE1CHW14 PO
[2018-01-07 01:02] VITALS: BP 160/72; PULSE 68; RESP 18; TEMP 98.6; O2SAT 100
== END 2018-01-07 01:50 | disposition left against medical advice (07) ==
LOC: NED 00:06
DX: M54.5 Low back pain (principal); Z53.21 Procedure and treatment not carried out due to patient leaving prior to being seen by health care provider
CPT/HCPCS: 99281